=== PATIENT | male | born 1930 | race African-American/Black ===

== ENCOUNTER 2021-04-03 13:38 | Emergency (ER) | payer OTHER ==
[~2021-04-03] VITALS: Ht 167.6 cm; Wt 72.6 kg
[2021-04-03 13:40] VITALS: BP 120/80
[2021-04-03] MEDS ORDERED: NACL 0.9% 1,000 ML IV ONE (14:35)
[2021-04-03 15:04] LABS: BASOPHILS % (AUTO) 0.5 % (0.0-2.0); EOSINOPHILS % (AUTO) 0.4 % (0.0-4.0); HEMOGLOBIN 15.1 g/dL (12.0-18.0); LYMPHOCYTES % (AUTO) 14.1 % (20.5-51.1); MEAN CORPUSCULAR HEMOGLOBIN 29 pg (27-31); MEAN CORPUSCULAR HGB CONC 33 g/dL (33-37); MEAN CORPUSCULAR VOLUME 89.4 fL (80-94); MONOCYTES # (AUTO) 1.1 K/uL (0.8-1.0); MONOCYTES % (AUTO) 15.4 % (1.7-9.3); NEUTROPHILS # (AUTO) 4.8 K/uL (1.8-7.7); NEUTROPHILS % (AUTO) 69.6 % (42.2-75.2); PLATELET COUNT (AUTO) 212 K/uL (140-450); RED BLOOD CELL COUNT(AUTO) 5.15 MIL/uL (4.20-6.10); RED CELL DISTRIBUTION WIDTH 14.3 % (11.6-13.7); WHITE BLOOD COUNT (AUTO) 6.8 K/uL (4.8-10.8)
--- NOTE | 2021-04-03 15:30 | NUR ---
CONSENT FOR CT WAS GIVEN. DAUGHTER GIVEN STATUS UPDATE
[2021-04-03 15:32] LABS: ALBUMIN 3.8 g/dL (3.4-5.0); ANION GAP 10.4 (8-16); ASPARTATE AMINOTRANSFERASE 23 U/L (15-37); CARBON DIOXIDE 30.4 mmol/L (21-32); CHLORIDE 105 mmol/L (98-107); CREATININE 1.3 mg/dL (0.6-1.3); GLUCOSE 216 mg/dL (74-106); LIPASE 156 U/L (73-393); POTASSIUM 4.8 mmol/L (3.5-5.1); SODIUM SERUM 141 mmol/L (136-145); TOTAL BILIRUBIN 0.8 mg/dL (0.0-1.0); UREA NITROGEN, BLOOD 12 mg/dL (7-18)
--- NOTE | 2021-04-03 15:40 | NUR ---
89 Y/O M BIBA FROM HOME, PATIENT PRESENTS TO ED WITH ABD PAIN, DIARRHA WITH NAUSEA AND VOMITING THIS MORNING. PT STATES HE IS NO LONGER HAVING THE ABD PAIN OR NAUSEA AT THIS TIME. SKIN IS PINK/COOL/DRY; AAOX4 WITH EVEN AND STEADY GAIT; LUNGS CLEAR BL; HR EVEN AND REGULAR; PT DENIES ANY FEVER, CP, SOB, OR COUGH AT THIS TIME; PATIENT STATES PAIN OF 0/10 AT THIS TIME; VSS; PATIENT POSITIONED FOR COMFORT; HOB ELEVATED; BEDRAILS UP X2; BED DOWN. ER MD MADE AWARE OF PT STATUS. PMH: HTN, DM2 NKA
[2021-04-03] MEDS ORDERED: ONDA-24 PO ×2 (16:56→17:45)
--- NOTE | 2021-04-03 17:31 | NUR ---
Patient discharged with v/s stable. Written and verbal after care instructions given and explained. Patient alert, oriented and verbalized understanding of instructions. Wheel Chair Assisted with to car WITH DAUGHTER. All questions addressed prior to discharge. ID band removed. Patient advised to follow up with PMD. Rx of ZOFRAN given. Patient educated on indication of medication including possible reaction and side effects. Opportunity to ask questions provided and answered.
[2021-04-03 17:32] VITALS: BP 120/80
--- NOTE | 2021-04-07 09:13 | NUR ---
Pavan smith in ED - 04/07/21 at 0914 by MED LATE ENTRY- NORMAL SALINE 0.9% DISCONTINUED AT 1726.
--- NOTE | 2021-04-07 09:15 | NUR ---
LATE ENTRY--NS DISCONTINUED AT 1731.
== END 2021-04-03 17:31 | disposition home or self-care (01) ==
LOC: MED 13:38
DX: R11.2 Nausea with vomiting, unspecified (principal); R19.7 Diarrhea, unspecified; E11.65 Type 2 diabetes mellitus with hyperglycemia; N20.1 Calculus of ureter
CPT/HCPCS: 74177; 80053; 83690; 85025; 96360; 99285; J7030; Q9967; 99284